=== PATIENT | male | born 1965 | race Caucasian/White ===

== ENCOUNTER 2021-08-10 15:55 | Emergency (ER) | payer OTHER ==
[~2021-08-10] VITALS: Ht 170.2 cm; Wt 74.1 kg
[2021-08-10] MEDS ORDERED: ATOR40TA75 PO (16:11)
[2021-08-10] MEDS ORDERED: SERO200T PO (16:11)
[2021-08-10] MEDS ORDERED: CETI10CA2 PO (16:11)
[2021-08-10] MEDS ORDERED: NS 1,000 ML IV ONE (16:35)
[2021-08-10 16:43] LABS: BASO % 0.2 % (0.0-1.0); EOS % 0.1 % (0.0-3.0); HEMATOCRIT 52.2 % (42.0-52.0); HEMOGLOBIN 17.9 g/dl (13.5-17.5); LYMPH # 0.4 10^3/uL (1.5-5.0); LYMPH % 2.1 % (24.0-44.0); MEAN CORPUSCULAR HGB CONC 34.3 g/dl (32.0-36.5); MEAN CORPUSCULAR VOLUME 93.2 fl (80.0-96.0); MONO # 0.4 10^3/uL (0.0-0.8); MONO % 2.2 % (2.0-8.0); PLATELET COUNT, AUTOMATED 195 10^3/uL (150-450); WHITE BLOOD COUNT 17.9 10^3/uL (4.0-10.0)
[2021-08-10] MEDS ORDERED: ISOVUE-370 76% 100ML VIAL As Ordered ONE (17:01)
[2021-08-10 17:06] LABS: BILIRUBIN,DIRECT 0.2 MG/DL (0.0-0.2); BILIRUBIN,TOTAL 0.6 MG/DL (0.2-1.0); TOTAL PROTEIN 7.6 GM/DL (6.4-8.2)
[2021-08-10] MEDS ORDERED: PROM25TA12 PO (18:10)
[2021-08-10] MEDS ORDERED: DICY10CA13 PO (18:10)
[2021-08-10 18:37] VITALS: BP 127/78
== END 2021-08-10 18:39 | disposition home or self-care (01) ==
LOC: M ED 15:55
DX: R11.2 Nausea with vomiting, unspecified (principal); R19.7 Diarrhea, unspecified; R10.30 Lower abdominal pain, unspecified; D72.829 Elevated white blood cell count, unspecified; I10 Essential (primary) hypertension; E78.5 Hyperlipidemia, unspecified; K21.9 Gastro-esophageal reflux disease without esophagitis; Z79.899 Other long term (current) drug therapy; F17.210 Nicotine dependence, cigarettes, uncomplicated
CPT/HCPCS: 74177; 80076; 83690; 85025; 96360; 96361; 99284; Q9967

== ENCOUNTER → 2021-08-10 | Outpatient (REF) | payer OTHER ==
[~2021-08-10] MED LIST: ATOR40TA75 PO; CETI10CA2 PO; DICY10CA13 PO; PROM25TA12 PO; SERO200T PO
== END ==
LOC: M LAB REF 11:49
PROVIDERS: ATTEND Physician Assistant
DX: R19.7 Diarrhea, unspecified (principal)